=== PATIENT | female | born 1965 | race Caucasian/White ===

== ENCOUNTER 2024-03-30 09:57 | Outpatient (CLI) | payer BC, MEDICAID, SELFPAY ==
--- NOTE | 2024-03-30 10:03 | CT_ITS ---
WS: [id number] LDCT LUNG CANCER SCREENING HISTORY: PERSONAL HISTORY OF NICOTINE DEPENDENCE TECHNIQUE: Axial imaging performed from the apices to 1 cm below the costophrenic angles. Coronal and sagittal reformats are submitted with axial MIP series. All CT scans at [facility] use at least one of these dose optimization techniques: automated exposure control; mA and/or kV adjustment per patient size (includes targeted exams where dose is matched to clinical indication); or iterativ e reconstruction. DLP: 47.30 mGy.cm DIvol: Mean CTDIvol: 0.80 (mGy) COMPARISON: None available. Diagnostic quality: Satisfactory Lungs: Mild pulmonary hyperexpansion. Linear areas of scarring or atelectasis at the lung bases. RIGH T perifissural nodule. There are no suspicious nodules or masses identified. No groundglass attenuati on. No endobronchial lesions. Heart: Normal size heart with no pericardial effusion.. Other findings: Mild atherosclerosis aorta. Normal size pulmonary artery. Small hiatal hernia. Neithe r adrenal gland is very well identified. CT/CT lung screening 10087 IMPRESSION: LUNG-RADS: 2-Benign Appearance or Behavior FOLLOW UP: 12 Month: Continue annual screening with LDCT OTHER FINDINGS (S MODIFIER): None.
== END 2024-03-30 09:58 | disposition home or self-care (01) ==
LOC: RAD 09:58
PROVIDERS: Family Provider Nurse Practitioner; PCP Nurse Practitioner Family; Visit Provider Nurse Practitioner Family
DX: Z12.2 Encounter for screening for malignant neoplasm of respiratory organs (principal); Z87.891 Personal history of nicotine dependence; J98.11 Atelectasis; R91.1 Solitary pulmonary nodule; K44.9 Diaphragmatic hernia without obstruction or gangrene
CPT/HCPCS: 71271